=== PATIENT | female | born 1990 | race American Indian/Alaskan Native ===

== ENCOUNTER 2016-03-15 07:39 | Inpatient (IN) | payer MEDICAID ==
[2016-03-15] MEDS ORDERED: PITOCin/NS 20 UNIT/1000ML DRIP 20,000 MILLIUNITS/1,000 ML BAG IV ONE (07:50)
[2016-03-15] MEDS ORDERED: METHERGINE IM ONE (07:50)
--- NOTE | 2016-03-15 08:18 | Procedure Note ---
OB Delivery Note - Delivery Date of Delivery: 03/15/16 Surgeon: AVTAR JESSICA Estimated blood loss: 200cc - Vaginal Delivery presentation: vertex Delivery position: OA Intrapartum events: precipitous labor- <3hr Delivery induction: none Delivery monitor: external FHT, external uterine Route of delivery: Delivery placenta: spontaneous Delivery cord: 3 umbilical vessels Episiotomy: none Delivery laceration: none Anesthesia: none - A at 1 minute: 8 at 5 minutes: 9 Gender: Male (Del @ 07:57 AM, weight is 5#13 or 2645 g)
[2016-03-15] MEDS ORDERED: TYLENOL PO PRN (08:21)
[2016-03-15] MEDS ORDERED: BENADRYL PO PRN (08:21)
[2016-03-15] MEDS ORDERED: LANSINOH TP PRN (08:21)
[2016-03-15] MEDS ORDERED: DERMOPLAST TP PRN (08:21)
[2016-03-15] MEDS ORDERED: PHENERGAN PO PRN (08:21)
[2016-03-15] MEDS ORDERED: TUCKS PAD TP PRN (08:21)
[2016-03-15] MEDS ORDERED: DULCOLAX PR PRN (08:21)
[2016-03-15] MEDS ORDERED: ZOFRAN IV PRN (08:21)
[2016-03-15] MEDS ORDERED: PHENERGAN PR PRN (08:21)
[2016-03-15] MEDS ORDERED: MILK OF MAGNESIA PO PRN (08:21)
--- NOTE | 2016-03-15 08:21 | History and Physical Report ---
History of Present Illness Date of examination: 03/15/16 Date of admission: 03/15/16 07:40 Chief complaint: Precipitate labour History of present illness: 25-year-old 001 at unsure gestational age presented in active labor with subsequent delivery, care was at an outside facility. Past History Past Medical History: no pertinent history Past Surgical History: no surgical history Social history: single, full code. denies: smoking, alcohol abuse, prescription drug abuse, IV drug use - Obstetrical History Expected Date of Delivery: 04/02/16 Actual Gestation: 37 Week(s) 3 Day(s) : 2 Para: 1 Medications and Allergies Allergies Allergy/AdvReac Type Severity Reaction Status Date / Time No Known Allergies Allergy Verified 08/16/15 10:50 Home Medications Medication Instructions Recorded Confirmed Last Taken Type Acetaminophen [Acetaminophen ER 650 mg PO Q8HR PRN #20 tablet.er 08/16/15 Unknown Rx TAB] Nitrofurantoin [place]/M-Cryst 100 mg PO Q12HR #14 capsule 08/16/15 Unknown Rx [Macrobid CAP] Review of Systems Constitutional: no fever, no chills Cardiovascular: no chest pain, no orthopnea, no edema, no syncope, no lightheadedness, no shortness of breath, no dyspnea on exertion Respiratory: no cough with sputum, no excessive sputum, no shortness of breath, no dyspnea on exertion Gastrointestinal: no nausea, no vomiting - Vital Signs Vital signs: Vital Signs Pulse BP 83 134/82 03/15/16 07:46 03/15/16 07:46 Temp Pulse Resp BP Pulse Ox 85 119/71 03/15/16 08:08 03/15/16 08:08 - Physical Exam Abdomen: Positive: normal appearance, soft. Negative: distention, tenderness, guarding Genitourinary (Female): Positive: normal external genitalia Results All other labs normal. Assessment and Plan PPD# 0 -doing well P: -Routine care -Expect discharge in 24-48 hours - Patient Problems (1) 37 weeks gestation of Current Visit: Yes Status: Acute (2) (normal spontaneous vaginal delivery) Current Visit: Yes Status: Acute
[2016-03-15] MEDS: MOTRIN PO SCH ×2 (08:50→17:10)
[2016-03-15] MEDS ORDERED: SENOKOT S PO SCH (09:00)
[2016-03-15] MEDS ORDERED: PITOCin/NS 20 UNIT/1000ML DRIP 20 UNIT/1,000 ML BAG IV SCH (09:00)
[2016-03-15] MEDS ORDERED: SODIUM CHLORIDE FLUSH SYRINGE 10 ML IV NR (09:00)
[2016-03-15 09:53] LABS: Hematocrit 41.1 % (30.3-42.9); Hemoglobin 13.4 gm/dl (10.1-14.3)
[2016-03-15 11:16] LABS: Basophils % (Auto) 0.3 % (0.0-1.8); Eosinophils % (Auto) 0.1 % (0.0-4.3); Hematocrit 41.3 % (30.3-42.9); Hemoglobin 13.4 gm/dl (10.1-14.3); Mean Corpuscular HGB Conc 33 % (30-34); Mean Corpuscular Hemoglobin 29 pg (28-32); Mean Corpuscular Volume 88 fl (79-97); Red Blood Count 4.67 M/mm3 (3.65-5.03); Red Cell Distribution Width 13.9 % (13.2-15.2); White Blood Count 15.9 K/mm3 (4.5-11.0)
[2016-03-15] MEDS: FEOSOL PO SCH ×2 (11:20→22:21)
[2016-03-15] MEDS: PRENATAL VITAMIN PO SCH (11:20)
[2016-03-15] MEDS: NORCO 5/325 PO PRN ×2 (11:20→22:20)
[2016-03-15] MEDS: COLACE PO SCH (11:20)
[2016-03-15 11:53] LABS: Platelet Count 135 K/mm3 (140-440)
[2016-03-15 17:14] LABS: HIV-1 Antigen p24 Non React (Non React); HIVR-1/2 Ab Non React (Non React)
[2016-03-15] MEDS: SENOKOT S PO SCH (22:21)
[2016-03-16 04:14] LABS: Hematocrit 33.9 % (30.3-42.9); Hemoglobin 11.2 gm/dl (10.1-14.3)
[2016-03-16] MEDS ORDERED: BOOSTRIX IM ONE (08:21)
[2016-03-16] MEDS ORDERED: M-M-R II VACCINE SUB-Q ONE (08:21)
[2016-03-16] MEDS: FEOSOL PO SCH (10:07)
[2016-03-16] MEDS: PRENATAL VITAMIN PO SCH (10:07)
[2016-03-16] MEDS: COLACE PO SCH (10:07)
[2016-03-16] MEDS: MOTRIN PO SCH ×2 (10:08→15:57)
[2016-03-16] MEDS: NORCO 5/325 PO PRN (10:08)
--- NOTE | 2016-03-16 12:01 | Progress Note ---
Assessment and Plan - Patient Problems (1) (normal spontaneous vaginal delivery) Onset Date: 03/16/16 Current Visit: Yes Status: Resolved Plan to address problem: A: S/P - PPD #1 Doing well P: May go home tomorrow since baby doesn't have discharge today Subjective - Subjective Date of service: 03/16/16 Principal diagnosis: s/p - PPD #1 Interval history: No complaints, feeling well. Bleeding improved. Wants to go home today. Patient reports: appetite normal, voiding normally, pain well controlled, flatus , ambulating normally [place]: doing well Objective - Vital Signs Latest vital signs: Vital Signs Temp Pulse Resp BP 03/16/16 00:00 98.6 F 63 20 116/53 03/15/16 15:30 98.3 F 55 L 20 101/54 Intake and Output 03/15/16 03/16/16 03/16/16 22:59 06:59 14:59 Intake Total 480 240 Balance 480 240 Intake: Oral 480 240 Other: Total, Intake Amount 360 240 Voiding Method Toilet # Voids Void 2 1 - Exam Breasts: Present: deferred Cardiovascular: Present: Regular rate Lungs: Present: Clear to auscultation Abdomen: Present: normal appearance, soft Uterus: Present: normal, firm, fundal height below umbilicus Extremities: Present: normal - Labs Labs: Laboratory Tests 03/15/16 03/15/16 03/15/16 09:37 09:37 09:37 WBC 15.9 H RBC 4.67 Hgb 13.4 13.4 Hct 41.1 41.3 MCV 88 MCH 29 MCHC 33 RDW 13.9 Plt Count 135 L Lymph % (Auto) 8.4 L Wake % (Auto) 4.1 Eos % (Auto) 0.1 Baso % (Auto) 0.3 Lymph # 1.3 Wake # 0.7 Eos # 0.0 Baso # 0.0 Seg Neutrophils % 87.1 H Seg Neutrophils # 13.8 H HCG, Quant 6569 H Hep Bs Antigen HIV 1&2 Antibody Rapid HIV P24 Antigen Rubella IgG Antibody Immune 03/15/16 03/15/16 03/16/16 09:37 09:37 03:41 WBC RBC Hgb 11.2 Hct 33.9 D MCV MCH MCHC RDW Plt Count Lymph % (Auto) Wake % (Auto) Eos % (Auto) Baso % (Auto) Lymph # Wake # Eos # Baso # Seg Neutrophils % Seg Neutrophils # HCG, Quant Hep Bs Antigen Non-reactive HIV 1&2 Antibody Rapid Non react HIV P24 Antigen Non react Rubella IgG Antibody
--- NOTE | 2016-03-16 14:08 | Discharge Summary ---
Providers - Providers Date of Admission: 03/15/16 07:40 Date of discharge: 03/17/16 Attending physician: JEFFERSON FONTENOT MD Primary care physician: JEFFERSON FONTENOT MD Hospitalization Reason for admission: active labor, IUP at term Delivery: Episiotomy: none Laceration: none Other procedures: none complications: none Discharge diagnosis: IUP at term delivered baby: male Hospital course: Unremarkable. Condition at discharge: Good Disposition: DISCHARGED TO HOME OR SELFCARE - Discharge Diagnoses (1) (normal spontaneous vaginal delivery) Status: Resolved Plan - Discharge Medications Prescriptions: Ibuprofen [Motrin 600 MG tab] 600 mg PO Q8H PRN #30 tablet PRN Reason: Pain Multivitamin with Iron [Multivitamins with Iron] 1 each PO DAILY #30 tablet - Provider Discharge Summary Activity: routine, no sex for 6 weeks, no heavy lifting 4 weeks, no strenuous exercise Diet: routine Instructions: routine Additional instructions: [] Smoking cessation referral if applicable(refer to patient education folder for contact #) [] Refer to [facility] Booklet Call your doctor immediately for: * Fever > 100.5 * Heavy vaginal bleeding ( >1 pad per hour) * Severe persistent headache * Shortness of breath * Reddened, hot, painful area to leg or breast * Drainage or odor from incision. * Keep incision clean and dry at all times and follow doctor's instructions regarding bathing/showering - Follow up plan Follow up: JEFFERSON VALERA MD [Primary Care Provider] - 6 Weeks
[2016-03-17] MEDS: COLACE PO SCH (00:03)
[2016-03-17] MEDS: SENOKOT S PO SCH (00:03)
[2016-03-17] MEDS: FEOSOL PO SCH (00:03)
[2016-03-17] MEDS: NORCO 5/325 PO PRN ×2 (00:07→08:13)
[2016-03-17] MEDS: MOTRIN PO SCH (00:25)
[2016-03-17 12:23] VITALS: BP 102/58
== END 2016-03-17 11:10 | disposition home or self-care (01) | DRG 775 ==
LOC: TRG 07:39 → LD 07:40 → OB 10:48
PROVIDERS: ADMIT Obstetrics & Gynecology; ATTEND Obstetrics & Gynecology
PROC: 10E0XZZ Delivery of Products of Conception, External Approach (ICD-10-PCS; principal; 2016-03-15)
DX: O62.3 Precipitate labor (principal); Z37.0 Single live birth; Z3A.37 37 weeks gestation of pregnancy
CPT/HCPCS: 36415; 84702; 85014; 85018; 85025; 86592; 86706; 86762; 86900; 86901; 87806; J2210; J2590